=== PATIENT | male | born 1950 | race Caucasian/White ===

== ENCOUNTER → 2016-05-19 | Outpatient (CLI) | payer MEDICARE ==
[~2016-05-19] MED LIST: ACET-785 PO; ASPI-558 PO; FERR1TAB25 PO; IBUP-1324 PO; LORA10TA7 PO; MAGN400C PO; MULT-806 PO; PRAV20TA4 PO; TRIA1CAP49 PO
--- NOTE | 2016-05-19 10:58 | DI ---
Indication: ITS.REASON: M79.604, R22.41 right posterior thigh pain PROCEDURE: US VENOUS DUPLEX, LOWER EXT RT: Encounter: Initial Comparison: None Technique: Color Doppler duplex and grayscale sonographic imaging of the right lower extremity was performed. Findings: There is no evidence for acute deep venous thrombosis in the right thigh. Specifically, serial graded compression was performed from the inguinal ligament to the popliteal bifurcation, on the right thigh, demonstrating appropriate compressibility of the deep venous system. In addition, color and pulsed Doppler demonstrate appropriate spontaneous flow, variation with respiration, and augmentation with calf compression. At the ankle, normal flow is identified in the posterior tibial veins; these vessels are also normal in caliber. Impression: No evidence of acute DVT in the right lower limb. .
== END ==
LOC: IMA 10:11
PROVIDERS: ATTEND Internal Medicine
DX: R22.41 Localized swelling, mass and lump, right lower limb (principal); M79.604 Pain in right leg

== ENCOUNTER → 2016-06-14 | Outpatient (CLI) | payer MEDICARE | LOC: NEU 08:35 | PROVIDERS: ATTEND Internal Medicine | DX: M54.18 Radiculopathy, sacral and sacrococcygeal region (principal); M79.604 Pain in right leg; R22.41 Localized swelling, mass and lump, right lower limb; S76.311A Strain of muscle, fascia and tendon of the posterior muscle group at thigh level, right thigh, initial encounter | CPT/HCPCS: 95886; 95908 ==

== ENCOUNTER → 2016-06-29 | Outpatient (CLI) | payer MEDICARE ==
--- NOTE | 2016-06-29 12:54 | DI ---
Indication: ITS.REASON: M79.651 PAIN IN RIGHT THIGH PROCEDURE: HIP RIGHT 2 VIEW: Encounter: Initial Comparison: None Findings: There is no acute fracture, dislocation or malalignment identified. There is an oval densely sclerotic lesion measuring 3.2 cm in diameter projecting over the right mid sacrum. The right hip joint space is normal. Pubic symphysis appears intact. Impression: No acute fracture. Densely sclerotic lesion projecting over the right sacrum. This could be due to artifact, something external to the patient or a sclerotic bone lesion. Comparison with any available prior study including the pelvis is recommended. If comparisons are unavailable, CT or MRI of the pelvis is recommended for further evaluation. .
--- NOTE | 2016-06-29 12:55 | DI ---
Indication: ITS.REASON: M79.651 PAIN IN RIGHT THIGH PROCEDURE: AP and Lateral views of the Right Femur Encounter: Initial Comparison: Right hip radiographs from the same time Findings: There is no acute fracture, dislocation or malalignment identified. 3.2 cm sclerotic lesion noted projecting over the right sacrum. Impression: No acute fracture. Sclerotic lesion projecting over the sacrum. Please see the hip report for recommendations. .
== END ==
LOC: IMA 11:27
PROVIDERS: ATTEND Internal Medicine
DX: R93.8 Abnormal findings on diagnostic imaging of other specified body structures (principal); M79.651 Pain in right thigh